=== PATIENT | male | born 1950 | race Caucasian/White ===

== ENCOUNTER → 2018-08-30 12:54 | Outpatient (CLI) | payer MEDICARE, BC, SELFPAY ==
[2018-08-17 08:56] VITALS: BMI 26.2
--- NOTE | 2018-08-30 12:57 | ECHOD_ITS ---
Reason For Study: HTN Procedure This was a 2D Doppler, Color Flow transthoracic echocardiogram. Exam performed in department. Left Ventricle Normal LV size. Left ventricular systolic function is normal. The estimated ejection fraction is 60 %. Transmitral and pulmonary venous doppler flow suggestive of impaired relaxation of left ventricle. No regional wall motion abnormalities noted. Right Ventricle Normal RV size. Normal systolic function. Atria Normal left atrium. Normal right atrium. Mitral Valve Normal mitral valve. Tricuspid Valve Normal tricuspid valve. Mild (1+) tricuspid valve insufficiency. Pulmonary artery systolic pressure is 26 mmHg. Aortic Valve Normal aortic valve. Pulmonic Valve Normal pulmonic valve. Great Vessels Normal aortic root. The pulmonary artery is normal size. Normal inferior vena cava. Pericardium/Pleural No pericardial effusion. MMode/2D Measurements & Calculations LVIDd: 5.6 cm IVSd: 1.1 cm Ao root diam: 3.0 cm LVIDs: 3.6 cm LVPWd: 0.86 cm RVDd: 3.2 cm FS: 35.6 % LAV(MOD-bp): 56.1 ml LVAd ap4: 35.4 cm2 SV(MOD-sp4): 64.3 ml LAV(MOD-bp) Indexed: 28.4 ml/m2 EDV(MOD-sp4): 115.4 ml LAV(MOD-sp2): 61.5 ml EDV(sp4-el): 115.2 ml LAV(MOD-sp4): 49.9 ml LVAs ap4: 20.5 cm2 ESV(MOD-sp4): 51.1 ml ESV(sp4-el): 49.8 ml EF(MOD-sp4): 55.7 % EF(sp4-el): 56.7 % SV(sp4-el): 65.4 ml LA A4 area: 18.2 cm2 LA dimension(2D): 4.4 cm RA A4 area: 17.2 cm2 Doppler Measurements & Calculations MV E max dwayne: 83.8 cm/sec Lat Peak E' Dwayne: 11.6 cm/sec Med Peak E' Dwayne: 7.3 cm/sec MV A max dwayne: 95.1 cm/sec E/E' lat: 7.2 E/E' med: 11.5 MV E/A: 0.88 Ao V2 max: 165.0 cm/sec LV V1 max: 109.8 cm/sec PA V2 max: 103.5 cm/sec Ao max P.9 mmHg LV V1 max P.8 mmHg Ao V2 mean: 114.5 cm/sec Ao mean P.8 mmHg Ao V2 VTI: 36.2 cm TR max dwayne: 229.6 cm/sec TR max P.1 mmHg Interpretation Summary Normal LV size. Left ventricular systolic function is normal. The estimated ejection fraction is 60 %. Transmitral and pulmonary venous doppler flow suggestive of impaired relaxation of left ventricle Mild (1+) tricuspid valve insufficiency. Pulmonary artery systolic pressure is 26 mmHg. Ordering Physician: Tomas Sanchez Referring Physician: Alfonzo Thompson Performed By: Lashawn Damico, NIKACS, RVT
== END ==
PROVIDERS: Family Provider Family Medicine; PCP Family Medicine; Referring Provider Internal Medicine Cardiovascular Disease; Visit Provider Internal Medicine Cardiovascular Disease
DX: I25.10 Atherosclerotic heart disease of native coronary artery without angina pectoris (principal)
CPT/HCPCS: 93306

== ENCOUNTER → 2020-06-06 08:35 | Outpatient (CLI) | payer MEDICARE, BC, SELFPAY ==
[2018-08-17 08:56] VITALS: BMI 26.2
[2020-06-06 09:53] LABS: AST(SGOT) 29 U/L (15-37); Alanine Aminotransfer ALT/SGPT 56 U/L (16-61); Alkaline Phosphatase 74 U/L (45-117); Bilirubin, Direct 0.17 mg/dL (0.00-0.30); Cholesterol 156 mg/dL (200); Globulin 3.7 g/dL (2.2-4.2); High Density Lipoprotein 65 mg/dL; Protein, Total 7.7 g/dL (6.4-8.2); Triglycerides 72 mg/dL; Very Low Density Lipoprotein 14 mg/dL (5-40)
== END ==
PROVIDERS: PCP Student in an Organized Health Care Education/Training Program; Referring Provider Internal Medicine Cardiovascular Disease; Visit Provider Internal Medicine Cardiovascular Disease
DX: E78.00 Pure hypercholesterolemia, unspecified (principal)
CPT/HCPCS: 36415; 80061; 80076

== ENCOUNTER 2021-05-26 16:15 | Emergency (ER) | payer MEDICARE, BC, SELFPAY ==
[2021-05-26 16:16] VITALS: BP 197/93; PULSE 67; RESP 16; TEMP 36.5; O2SAT 98; BMI 24.3
--- NOTE | 2021-05-26 16:30 | CT_ITS ---
EXAMINATION : Head CT w/out contrast HISTORY : headache, HTN COMPARISON : None. TECHNIQUE : Multiple contiguous axial images were obtained from the skull base to the vertex without intravenous contrast. A radiation dose optimization technique was used for this scan. FINDINGS : The ventricles and sulci are normal in size. There is no evidence for acute intracranial hemorrhage, mass effect, or midline shift. There is no extra-axial fluid collection. There is normal baker-white differentiation, without CT evidence of acute ischemia or infarct. The skull base and calvarium are unremarkable. The orbits are unremarkable. The paranasal sinuses are clear. The mastoid air cells are well-aerated. The soft tissues are unremarkable. CT/Brain/Head without Contrast IMPRESSION: No acute intracranial abnormality. Electronically Signed: Raphael Mitchell MD at 17:22 EDT Tel , Service support ,
--- NOTE | 2021-05-26 16:31 | EKG12_ITS ---
Test Reason : HTN/ROGERS Blood Pressure : / mmHG Vent. Rate : 066 BPM Atrial Rate : 066 BPM P-R Int : 176 ms QRS Dur : 096 ms QT Int : 408 ms P-R-T Axes : 068 028 042 degrees QTc Int : 427 ms Normal sinus rhythm Normal ECG Confirmed by KYRIE LEI, CEE ([id number]), medical editor JANET PINO ([id number]) on 05/28/2021 9:42:32 AM Referred By: JAYSHREE Confirmed By:CEE MITTAL MD
--- NOTE | 2021-05-26 16:33 | EDS_ITS ---
HPI History of Present Illness Chief Complaint: Hypertension Informant: patient and spouse/S.O. Onset/Context/Timing Onset: Today Current Severity: Mild Maximum Severity: Mild Narrative Narrative: Patient present secondary to hypertension and headache. Patient states he checks his blood pressure every day. He normally runs 120-130 systolic. Today his blood pressure at home was in the 190s systolic. He stood up multiple times throughout the day today. He does note a left frontal headache that he has had much of the day. Patient states that he is due to per [place] to spend a month in [place] in 2 days and wanted to ensure nothing was wrong before he left. He has been on the same dose of blood pressure medications for the past 2 years with no difficulty. [facility] Medical History Atherosclerotic heart disease of [place] coronary artery without angina pectoris Family history of premature coronary heart disease FH: sudden cardiac (SCD) History of prostate cancer Hyperlipidemia Right bundle branch block Syncope and collapse Home Medications aspirin 81 mg PO DAILY@0800 12/25/14 [History Last Taken 12/22/14 81 MG] lisinopril 20 mg tablet 20 mg PO DAILY #90 tab 06/08/20 [Rx Last Taken Unknown] rosuvastatin 20 mg tablet 20 mg PO DAILY #90 tab 06/08/20 [Rx Last Taken Unknown] Allergy/AdvReac Type Severity Reaction Status Date / Time No Known Allergies Allergy Verified 05/26/21 16:19 nitrogylcerin AdvReac Severe Very Uncoded 05/26/21 16:19 hypotensive Family History Father , age 78 CAD (coronary artery disease) Myocardial infarction Sudden cardiac Mother , 68 COPD (chronic obstructive pulmonary disease) Brother , age 42 CAD (coronary artery disease) Myocardial infarction Sudden cardiac Surgical History History of herniorrhaphy History of left heart catheterization (12/31/01) History of prostatectomy Social History Smoking Status: Former smoker ROS ROS ED Constitutional Constitutional ED: Denies chills or fever(s) Eyes Eyes: Denies change in vision ENT ENT ED: Denies sore throat Cardiovascular Cardiovascular: Denies chest pain Respiratory/Chest Respiratory/Chest: Denies cough or dyspnea Gastrointestinal Gastrointestinal: Denies abdominal pain, diarrhea, nausea or vomiting Genitourinary Genitourinary ED: Denies dysuria Musculoskeletal Musculoskeletal: Denies back pain Integumentary Denies rash Neurologic Neurologic: Reports headache(s); Denies weakness Allergic/Immunologic Allergic/Immunologic ED: Denies urticaria EXAM Physical Exam Const Vital Signs: 05/26/21 16:16 05/26/21 16:22 Temperature 97.7 F L Temperature Source Temporal Pulse Rate 67 Respiratory Rate 16 Respiratory Effort Normal Non-Labored Respiratory Pattern Normal Blood Pressure 197/93 H Blood Pressure Mean 127 Pulse Ox 98 Oxygen Delivery Method Room Air Positive well nourished and well developed General Appearance ED: well developed HEENT Reports normocephalic and head/scalp atraumatic Eyes PERRL and EOMs intact bilaterally Neck supple Chest Wall inspection of chest normal and palpation of chest normal Resp normal respiratory effort and clear to auscultation bilaterally Cardio regular rate and regular rhythm GI normal to inspection, nondistended, normoactive bowel sounds and non-tender Palpation: soft Extremity normal to inspection Neuro oriented x3 and no sensory deficits noted Sensorium / Orientation: alert Motor Exam: strength 5/5 throughout Psych mental status grossly normal Skin no rashes or lesions noted MDM MDM MDM Narrative Medical decision making narrative: Blood work, EKG, head CT obtained. At the time of my examination blood pressure was 161/97 so meds were held and patient was observed. Lab Data Attestation: I reviewed the patient's lab results. Labs: Laboratory Results - last 24 hr 05/26/21 05/26/21 16:39 16:39 WBC 4.9 RBC 4.84 Hgb 14.7 Hct 43.3 MCV 89.5 MCH 30.4 MCHC 33.9 RDW Std Deviation 39.5 RDW Coeff of [place] 12.3 Plt Count 212 MPV 10.0 Immature Gran % (Auto) 0.200 Neut % (Auto) 57.5 Lymph % (Auto) 27.1 [place] % (Auto) 13.4 H Eos % (Auto) 1.2 Baso % (Auto) 0.6 Absolute Neuts (auto) 2.8 Absolute Lymphs (auto) 1.33 Nucleated RBC % 0 Sodium 141 Potassium 3.8 Chloride 107 Carbon Dioxide 29.0 Anion Gap 5 BUN 11 Creatinine 0.87 Estim Creat Clear Calc 81.58 Est GFR (MDRD) Af Amer 112 Est GFR (MDRD) Non-Af 92 BUN/Creatinine Ratio 12.7 Glucose 109 H Calcium 9.3 Radiography Diagnostic Testing: Clinical Impression(s) from Imaging Studies Brain CT 05/26/21 16:30 IMPRESSION: No acute intracranial abnormality. Electronically Signed: Raphael Mitchell MD at 17:22 EDT Tel , Service support , EKG Initial EKG: Attestation: I personally reviewed and interpreted this EKG as follows: Interpretation: Sinus Rhythm (Sinus at 66 with no acute ischemia.) Treatment and Re-Evaluation Comments:: Repeat evaluation patient resting comfortably. He states his headache is improved but still mild and present. He will be given a dose of Tylenol. Blood pressure at this time is 140/82 without any intervention. Test results discussed with patient and at bedside. I advised him to take his blood pressure medication in the morning as planned and then recheck his blood pressure couple hours later like he normally would. If it is elevated again he can call Dr. Sanchez for further instructions. I advised him if he is not having significant symptoms not to worry about checking it too often. Discharge Plan Triage Chief Complaint: Hypertension ED Provider: Tarah Anaya Dx/Rx/DC Orders Clinical Impression: Hypertension Instructions: ED High Blood Pressure Hypertension Prescriptions: No Action rosuvastatin 20 mg tablet 20 mg PO DAILY Qty: 90 RF: 3 lisinopril 20 mg tablet 20 mg PO DAILY Qty: 90 RF: 3 aspirin 81 MG tablet,chewable 81 mg PO DAILY@0800 RF: 0 Primary Care Provider: Javon Mckeon Referrals: Tomas Sanchez MD [STAFF PHYSICIAN] - As Needed Javon Mckeon DO [Primary Care Provider] - Disposition Disposition: Home, Self Care
--- NOTE | 2021-05-26 16:41 | NURSING ---
NO OLD EKGS
[2021-05-26 16:55] LABS: Absolute Lymphocyte Count 1.33 X10^3/uL (0.83-4.51); Absolute Neutrophil Count 2.8 X10^3/uL (2.0-7.7); Basophil# 0.03 X10^3/uL; Basophil% 0.6 % (0-1); Eosinophil# 0.06 X10^3/uL; Eosinophils% 1.2 % (0-5); Hematocrit 43.3 % (40-54); Hemoglobin 14.7 g/dL (13.0-16.5); Lymphocyte # 1.33 X10^3/ul (0.83-4.51); Lymphocyte % 27.1 % (19-41); Mean Corp Hgb Conc 33.9 g/dL (32-36); Mean Corpuscular Hgb 30.4 pg (27.0-32.0); Mean Corpuscular Volume 89.5 fL (80-94); Monocyte# 0.66 X10^3/uL; Monocyte% 13.4 % (0-10); NRBC Flagged by Analyzer 0 % (0-5); Neutrophil # 2.82 X10^3/uL (2.7-7.7); Neutrophil % 57.5 % (47-70); Platelet Count 212 K/mm3 (150-450); RBC Distribution Width CV 12.3 % (11.6-14.6); RBC Distribution Width SD 39.5 fl (35.1-43.9); Red Blood Count 4.84 M/mm3 (4.6-6.2); White Blood Count 4.9 K/mm3 (4.4-11.0)
[2021-05-26 17:06] LABS: Anion Gap 5 (5-15); BUN 11 mg/dL (7-18); BUN/Creat Ratio 12.7 RATIO (10-20); Calcium,Total 9.3 mg/dL (8.5-10.1); Chloride 107 mmol/L (98-107); Creatinine, Serum 0.87 mg/dL (0.70-1.30); EST Glomerular Filtration Rate 92 mL/min (>60); Est Glom Filt Rate - Afr Amer 112 mL/min (>60); Estimated Creatinine Clearance 81.58 ml/min; Glucose 109 mg/dL (74-106); Potassium 3.8 mmol/L (3.5-5.1); Sodium Level 141 mmol/L (136-145)
[2021-05-26 17:23] VITALS: BP 140/82; PULSE 76; RESP 18; O2SAT 97
[2021-05-26] MEDS: Acetaminophen 500 MG Tablet 1000 MG PO (17:30)
[2021-05-26 17:32] VITALS: RESP 16
== END 2021-05-26 17:34 | disposition home or self-care (01) ==
PROVIDERS: Emergency Provider Emergency Medicine; PCP Student in an Organized Health Care Education/Training Program
DX: I10 Essential (primary) hypertension (principal); I25.10 Atherosclerotic heart disease of native coronary artery without angina pectoris; Z79.82 Long term (current) use of aspirin; Z79.899 Other long term (current) drug therapy; Z87.891 Personal history of nicotine dependence; Z82.49 Family history of ischemic heart disease and other diseases of the circulatory system
CPT/HCPCS: 70450; 80048; 85025; 93005; 99285; A4216

== ENCOUNTER → 2021-07-01 06:31 | Outpatient (CLI) | payer MEDICARE, BC, SELFPAY ==
[2021-07-01 08:02] LABS: AST(SGOT) 30 U/L (15-37); Alanine Aminotransfer ALT/SGPT 70 U/L (16-61); Albumin, Serum 4.3 g/dL (3.2-5.0); Alkaline Phosphatase 72 U/L (45-117); Bilirubin, Direct 0.22 mg/dL (0.00-0.30); Cholesterol 162 mg/dL (200); Globulin 3.8 g/dL (2.2-4.2); High Density Lipoprotein 61 mg/dL; Protein, Total 8.1 g/dL (6.4-8.2); Triglycerides 74 mg/dL; Very Low Density Lipoprotein 15 mg/dL (5-40)
== END ==
PROVIDERS: PCP Student in an Organized Health Care Education/Training Program; Referring Provider Internal Medicine Cardiovascular Disease; Visit Provider Internal Medicine Cardiovascular Disease
DX: E78.00 Pure hypercholesterolemia, unspecified (principal); I25.10 Atherosclerotic heart disease of native coronary artery without angina pectoris
CPT/HCPCS: 36415; 80061; 80076

== ENCOUNTER → 2021-07-10 05:58 | Outpatient (CLI) | payer MEDICARE, BC, SELFPAY ==
--- NOTE | 2021-07-10 12:49 | STRESSREP ---
Stress Test Report Exercise myocardial perfusion stress test. 71-year-old man with a history of dyspnea and fatigue. Stress protocol: Resting EKG demonstrates normal sinus rhythm with a rate of 55 bpm normal intervals are noted resting blood pressure is 130/78 mmHg. The patient exercised according to regular [place] protocol for total duration of 8 minutes. Patient completed stage III of the [place] protocol in with 2 minutes. The maximum heart rate attained was 127 bpm which was 87% of max impact at heart rate. The maximum workload was 10.1 metabolic equivalents. The patient maintained sinus rhythm throughout the recording. At rest no ST changes were noted to suggest ischemia and at peak exercise upsloping ST changes were noted with did not meet the criteria for ischemia. No clinical angina was noted the peak blood pressure was 170/64 mmHg with a rate-pressure product 20,160. No clinical angina was noted. Myocardial perfusion protocol. 11.8 mCi of technetium 99m sestamibi was injected at rest. The patient exercised according to regular [place] protocol for total duration of 8 minutes. At peak exercise 33.4 mCi of technetium 99m sestamibi was injected stress images were obtained stress and rest images were reconstructed and compared in the short axis vertical long and horizontal long axis. Gated images were also obtained. Perfusion SPECT analysis: Review of the stress images demonstrate normal uptake of tracer noted in all areas of the myocardium. The resting images similarly demonstrate normal uptake of tracer noted in all areas of the myocardium. No areas of reversibility are noted to suggest ischemia and no previous infarct is noted. Gated SPECT analysis: The gated ejection fraction is noted to be 57%. Conclusion: Normal exercise myocardial perfusion stress test at a high workload. Preserved ejection fraction.
== END ==
PROVIDERS: PCP Student in an Organized Health Care Education/Training Program; Referring Provider Nurse Practitioner Gerontology; Visit Provider Nurse Practitioner Gerontology
DX: I25.10 Atherosclerotic heart disease of native coronary artery without angina pectoris (principal); R94.39 Abnormal result of other cardiovascular function study
CPT/HCPCS: 78452; 93017; A9500; A4216

== ENCOUNTER → 2022-01-22 | Outpatient (CLI) | payer MEDICARE, BC, SELFPAY ==
[2022-01-22 07:46] LABS: AST(SGOT) 26 U/L (15-37); Alanine Aminotransfer ALT/SGPT 47 U/L (16-61); Albumin, Serum 3.8 g/dL (3.2-5.0); Alkaline Phosphatase 63 U/L (45-117); Bilirubin, Direct 0.15 mg/dL (0.00-0.30); Cholesterol 152 mg/dL (200); Globulin 3.5 g/dL (2.2-4.2); High Density Lipoprotein 63 mg/dL; Protein, Total 7.3 g/dL (6.4-8.2); Triglycerides 66 mg/dL; Very Low Density Lipoprotein 13 mg/dL (5-40)
== END | disposition home or self-care (01) ==
LOC: LAB 06:34
PROVIDERS: PCP Student in an Organized Health Care Education/Training Program; Referring Provider Internal Medicine Cardiovascular Disease; Visit Provider Internal Medicine Cardiovascular Disease
DX: E78.00 Pure hypercholesterolemia, unspecified (principal)
CPT/HCPCS: 36415; 80061; 80076

== ENCOUNTER → 2022-07-04 | Outpatient (CLI) | payer MEDICARE, BC, SELFPAY ==
[2022-07-04 08:52] LABS: AST(SGOT) 17 U/L (15-37); Alanine Aminotransfer ALT/SGPT 49 U/L (16-61); Albumin, Serum 3.6 g/dL (3.2-5.0); Alkaline Phosphatase 68 U/L (45-117); Bilirubin, Direct 0.16 mg/dL (0.00-0.30); Cholesterol 151 mg/dL (200); Globulin 3.2 g/dL (2.2-4.2); High Density Lipoprotein 56 mg/dL; Protein, Total 6.8 g/dL (6.4-8.2); Triglycerides 88 mg/dL; Very Low Density Lipoprotein 18 mg/dL (5-40)
== END | disposition home or self-care (01) ==
LOC: LAB 06:49
PROVIDERS: PCP Student in an Organized Health Care Education/Training Program; Visit Provider Internal Medicine Cardiovascular Disease
DX: E78.5 Hyperlipidemia, unspecified (principal)
CPT/HCPCS: 36415; 80061; 80076

== ENCOUNTER 2023-02-02 05:09 | Emergency (ER) | payer MEDICARE, BC, SELFPAY ==
[2023-02-02 05:10] VITALS: BP 162/84; PULSE 63; RESP 15; TEMP 36.5; O2SAT 100; BMI 24.7
--- NOTE | 2023-02-02 05:41 | EX.ED.DYSGE1 ---
HPI History of Present Illness Chief Complaint: Back Informant: patient and spouse/S.O. Narrative Narrative: Patient is a 73-year-old male with past medical history of hyperlipidemia and coronary artery disease as well as previous degenerative disc disease of the lumbar spine requiring laminectomy. He states that surgery was roughly 20 years ago and over the past few weeks to months he has been having increasing low back pain which radiates down his right leg. He states he had an MRI roughly 2 weeks ago that showed nerve impingement. He states he has been no repeat trauma or excessive activity but he has noted increasing pain that is not responding to [id number] medications. He states there is been no loss of bowel or bladder control and he denies any IV drug use. However because of the persistent symptoms he presents for evaluation [facility] Medical History Atherosclerotic heart disease of [place] coronary artery without angina pectoris COVID-19 (~04/2021) Family history of premature coronary heart disease FH: sudden cardiac (SCD) History of prostate cancer Hyperlipidemia Right bundle branch block Syncope and collapse Home Medications aspirin 81 mg chewable tablet 81 mg PO DAILY@0800 12/25/14 [History Last Taken 12/22/14 81 MG] cholecalciferol (vitamin D3) 25 mcg (1,000 unit) chewable tablet 50 mcg PO DAILY 07/03/21 [History Last Taken Unknown] rosuvastatin 20 mg tablet 20 mg PO DAILY #90 tabs 07/08/22 [Rx Last Taken Unknown] lisinopril 20 mg tablet 20 mg PO BID This is a dose increase (pt got 90 pills last time #180 tabs 07/17/22 [Rx Last Taken Unknown] methocarbamol 750 mg tablet 750 mg PO TID PRN Muscle pain/spasm 10 days #30 tabs 02/02/23 [Rx Last Taken Unknown] oxycodone-acetaminophen 5 mg-325 mg tablet (Percocet) 1 tab PO Q6H PRN pain 3 days #12 tabs 02/02/23 [Rx Last Taken Unknown] prednisone 20 mg tablet 40 mg (2 x 20 mg) PO DAILY 5 days #10 tabs 02/02/23 [Rx Last Taken Unknown] Allergy/AdvReac Type Severity Reaction Status Date / Time nitroglycerin AdvReac Severe Other Verified 02/02/23 05:16 Family History Father , age 78 CAD (coronary artery disease) Myocardial infarction Sudden cardiac Mother , 68 COPD (chronic obstructive pulmonary disease) Brother , age 42 CAD (coronary artery disease) Myocardial infarction Sudden cardiac Surgical History History of herniorrhaphy History of left heart catheterization (12/31/01) History of prostatectomy Social History Smoking Status: Former smoker how long ago did patient quit smokin alcohol intake: current alcohol intake frequency: 0-2 drinks per day Alcohol type: beer, wine and hard liquor substance use type: does not use caffeine: Yes Type: coffee Number of servings: 4 ROS ROS ED Constitutional Constitutional ED: Denies chills or fever(s) ENT ENT ED: Denies sore throat Cardiovascular Cardiovascular: Denies chest pain Respiratory/Chest Respiratory/Chest: Denies cough or dyspnea Gastrointestinal Gastrointestinal: Denies abdominal pain, diarrhea, nausea or vomiting Genitourinary Genitourinary ED: Denies dysuria or hematuria Musculoskeletal Musculoskeletal: Reports back pain and other Details: Positive right leg pain Integumentary Denies rash Neurologic Neurologic: Reports paresthesias; Denies headache(s) Hematologic/Lymphatic Hematologic/Lymphatic: Denies easy bleeding or easy bruising EXAM Physical Exam Const Vital Signs: 02/02/23 05:10 02/02/23 06:08 Temperature 97.7 F L Temperature Source Temporal Pulse Rate 63 73 Respiratory Rate 15 15 Blood Pressure 162/84 H 152/87 H Blood Pressure Mean 110 Pulse Ox 100 98 Oxygen Delivery Method Room Air Positive well nourished and well developed General Appearance ED: well developed; Negative for pallor HEENT HEENT Narrative: Normocephalic atraumatic Eyes PERRL and EOMs intact bilaterally Neck supple Resp normal respiratory effort and clear to auscultation bilaterally Cardio regular rate and regular rhythm Rate: other Other Details: Radial pulses are plus 2 out of 4 bilaterally are equal and symmetric Back/Spine Back/Spine Narrative: No saddle anesthesia. No clonus or Babinski. Patellar reflexes are plus 2 out of 4 bilaterally. Positive straight leg raise on right at approximately 40 degrees. Extremity normal to inspection Neuro oriented x3 and CN's II-XII intact bilaterally Sensorium / Orientation: alert Psych mental status grossly normal Skin no rashes or lesions noted General Skin Exam: Negative for jaundice or pallor MDM MDM MDM Narrative Medical decision making narrative: Patient presented to the ER hypertensive otherwise with stable vitals. He has known degenerative disc disease of his low back. There is been no recent trauma and he denies any recent surgery or history of IV drug use to suggest discitis or epidural abscess. He also states he has had no issues with loss of bowel or bladder control going against cauda equina syndrome. He reported he had an MRI just 2 weeks ago which showed nerve impingement and based on his physical exam and radiation of the pain down the posterior medial aspect of the leg towards the great toe this does correlate with an L5-S1 dermatome. Therefore I feel no reason to repeat imaging study. Patient states he is mainly here for pain control and therefore he will be given IM morphine IM and Decadron and placed on further steroids and pain medication for home. However as he has had recent MRI I do not feel need for repeat imaging and as history and exam indicate potential risk factors for infectious process or cauda equina is low he can be safely discharged home History & Record Review Discussion w/independent historian: Patient and Significant other Discharge Plan Triage Chief Complaint: Back ED Provider: Cayden Jaquez Dx/Rx/DC Orders Clinical Impression: Lumbar disc disease with radiculopathy, Hyperlipidemia Instructions: Understanding Lumbar Radiculopathy, ED Degenerative Disk Disease Prescriptions: New oxycodone-acetaminophen [Percocet] 5-325 mg tablet 1 tab PO Q6H PRN (Reason: pain) 3 Days Qty: 12 0RF prednisone 20 mg tablet 40 mg PO DAILY 5 Days Qty: 10 0RF methocarbamol 750 mg tablet 750 mg PO TID PRN (Reason: Muscle pain/spasm) 10 Days Qty: 30 0RF No Action cholecalciferol (vitamin D3) 25 mcg (1,000 unit) tablet,chewable 50 mcg PO DAILY rosuvastatin 20 mg tablet 20 mg PO DAILY Qty: 90 3RF aspirin 81 MG tablet,chewable 81 mg PO DAILY@0800 lisinopril 20 mg tablet 20 mg PO BID Qty: 180 4RF Primary Care Provider: Javon Mckeon Referrals: Javon Mckeon, [Primary Care Provider] - Activity Restrictions/Additional Instructions: Please discuss referral to a spine surgeon with your family doctor. Your history and exam indicate that you have nerve impingement at your L5-S1 nerve root causing your leg pain. If you elect not to undergo your back injection scheduled for Thursday then please take the prescribed Percocet/oxycodone and you can add the prescription grade ibuprofen you already have at home with this as they work synergistically to help reduce pain. Take the prednisone once a day as directed as well for the next 5 days to reduce your inflammatory response. If you do decide to undergo your back injections please refrain from taking the ibuprofen and prednisone. If you have any further concerns or worsening of symptoms please return to the hospital for repeat evaluation Disposition Disposition: Home, Self Care Discharge Date/Time: 02/02/23 06:08
[2023-02-02] MEDS: Ondansetron ODT 4 MG Tablet PO (05:51)
[2023-02-02] MEDS: dexAMETHasone 10 MG/ML Vial IM (05:51)
[2023-02-02] MEDS: Morphine 4 MG/ML Syringe 6 MG IM (05:52)
[2023-02-02 06:08] VITALS: BP 152/87; PULSE 73; RESP 15; O2SAT 98
== END 2023-02-02 06:08 | disposition home or self-care (01) ==
LOC: ED 05:54
PROVIDERS: Emergency Provider Emergency Medicine; PCP Student in an Organized Health Care Education/Training Program; Visit Provider Emergency Medicine
DX: M51.16 Intervertebral disc disorders with radiculopathy, lumbar region (principal); E78.5 Hyperlipidemia, unspecified; I25.10 Atherosclerotic heart disease of native coronary artery without angina pectoris; Z87.891 Personal history of nicotine dependence; Z86.16 Personal history of COVID-19
CPT/HCPCS: 96372; 99283

== ENCOUNTER 2023-07-03 19:45 | Emergency (ER) | payer MEDICARE, BC, SELFPAY ==
[2023-07-03 19:46] VITALS: BP 133/66; PULSE 80; RESP 18; TEMP 36.4; O2SAT 96
--- NOTE | 2023-07-03 20:39 | ED.RN ---
patient experienced a syncopal episode. patient was sitting down, slumped forward when passing out but denies hitting head or loc. patient states I remember feeling warm and my eyes got really blurry, next thing I remember was waking up surrounded by a bunch of people. had a similar dizzy episode last week when he brought his to the ER. denies symptoms currently. denies injury.
[2023-07-03 20:46] VITALS: BP 122/62
[2023-07-03 21:46] VITALS: BP 124/74
--- NOTE | 2023-07-03 22:23 | EX.ED.DYSGE1 ---
HPI History of Present Illness Chief Complaint: Syncope Informant: patient Narrative Narrative: Patient is a 73 year old male with right bundle branch block, coronary artery disease and hyperlipidemia presenting after syncopal episode. Patient states he was at a baseball game sitting up in the stands. He started to feel hot. He notes he is having hard time focusing and all the sudden he passed out. Son at the bedside who states that he passed out 2 times in quick succession. Notes he was really pale. He does not fall or hit his head. Once they got him out of the stadium cooled off he states he is feeling better. Currently denies any complaints. Reports an episode of near syncope about a week ago when his was getting sutures but he did not pass out at this time. Otherwise had episode of syncope years ago while at a casino. Denies any palpitations, chest discomfort or shortness of breath. Denies any swelling of his legs. Notes that he is dealing with some increased sciatica pain that started today. Notes of this past year he has had issues with sciatica and has been pretty well-controlled with injections however he went walking at the local [place] and his pain flared up today. He did take a Percocet at 4 PM. Notes his pain is doing better right now. Did have an episode of urinary incontinence during this episode today. No other complaints or concerns at this time. [facility] History Atherosclerotic heart disease of [place] coronary artery without angina pectoris COVID-19 (~04/2021) Family history of premature coronary heart disease FH: sudden cardiac (SCD) History of prostate cancer Hyperlipidemia Right bundle branch block Syncope and collapse Home Medications aspirin 81 mg chewable tablet 81 mg PO DAILY@0800 12/25/14 [History Last Taken 12/22/14 81 MG] cholecalciferol (vitamin D3) 25 mcg (1,000 unit) chewable tablet 50 mcg PO DAILY 07/03/21 [History Last Taken Unknown] methocarbamol 750 mg tablet 750 mg PO TID PRN Muscle pain/spasm 10 days #30 tabs 02/02/23 [Rx Last Taken Unknown] oxycodone-acetaminophen 5 mg-325 mg tablet (Percocet) 1 tab PO Q6H PRN pain 3 days #12 tabs 02/02/23 [Rx Last Taken Unknown] lisinopril 20 mg tablet 20 mg PO BID #180 tabs 06/12/23 [Rx Last Taken Unknown] rosuvastatin 20 mg tablet 20 mg PO DAILY #90 tabs 06/12/23 [Rx Last Taken Unknown] prednisone 20 mg tablet 40 mg (2 x 20 mg) PO DAILY 5 days #10 tabs 07/04/23 [Rx Last Taken Unknown] Allergy/AdvReac Type Severity Reaction Status Date / Time nitroglycerin AdvReac Severe Other Verified 07/03/23 19:50 Family History Father , age 78 CAD (coronary artery disease) Myocardial infarction Sudden cardiac Mother , 68 COPD (chronic obstructive pulmonary disease) Brother , age 42 CAD (coronary artery disease) Myocardial infarction Sudden cardiac Surgical History History of herniorrhaphy History of left heart catheterization (12/31/01) History of prostatectomy Social History Smoking Status: Former smoker how long ago did patient quit smokin alcohol intake: current alcohol intake frequency: 0-2 drinks per day Alcohol type: beer, wine and hard liquor substance use type: does not use caffeine: Yes Type: coffee Number of servings: 4 ROS ROS ED Constitutional Constitutional ED: Reports sweats and other Details: syncope ; Denies chills or fever(s) Eyes Eyes: Reports blurry vision; Denies change in vision ENT ENT ED: Denies rhinorrhea Cardiovascular Cardiovascular: Denies chest pain or palpitations Respiratory/Chest Respiratory/Chest: Denies cough Gastrointestinal Gastrointestinal: Denies abdominal pain, nausea or vomiting Genitourinary Genitourinary ED: Denies dysuria Musculoskeletal Musculoskeletal: Reports back pain; Denies arthralgias Integumentary Denies rash Neurologic Neurologic: Denies headache(s), paresthesias or weakness Psychiatric Psychiatric: Denies anxiety Hematologic/Lymphatic Hematologic/Lymphatic: Denies easy bleeding or easy bruising EXAM Physical Exam Const Vital Signs: 07/03/23 19:46 07/03/23 20:36 07/03/23 20:46 Temperature 97.6 F L Temperature Source Temporal Pulse Rate 80 Pulse Rate [Lying] Pulse Rate [Sitting (for 1 minute prior to obtaining)] Pulse Rate [Standing (for 1 minute prior to obtaining)] Respiratory Rate 18 Respiratory Effort Normal Respiratory Pattern Normal Blood Pressure 133/66 H 122/62 H Blood Pressure [Lying] Blood Pressure [Sitting (for 1 minute prior to obtaining)] Blood Pressure [Standing (for 1 minute prior to obtaining)] Blood Pressure Mean 88 82 Blood Pressure Mean [Lying] Blood Pressure Mean [Sitting (for 1 minute prior to obtaining)] Blood Pressure Mean [Standing (for 1 minute prior to obtaining)] Pulse Ox 96 Oxygen Delivery Method Room Air 07/03/23 21:46 07/03/23 22:46 07/03/23 23:00 Temperature Temperature Source Pulse Rate 60 Pulse Rate [Lying] Pulse Rate [Sitting (for 1 minute prior to obtaining)] Pulse Rate [Standing (for 1 minute prior to obtaining)] Respiratory Rate 16 Respiratory Effort Respiratory Pattern Blood Pressure 124/74 H 135/85 H 128/104 H Blood Pressure [Lying] Blood Pressure [Sitting (for 1 minute prior to obtaining)] Blood Pressure [Standing (for 1 minute prior to obtaining)] Blood Pressure Mean 90 101 112 Blood Pressure Mean [Lying] Blood Pressure Mean [Sitting (for 1 minute prior to obtaining)] Blood Pressure Mean [Standing (for 1 minute prior to obtaining)] Pulse Ox 100 Oxygen Delivery Method Room Air 07/03/23 23:38 Temperature Temperature Source Pulse Rate Pulse Rate [Lying] 62 Pulse Rate [Sitting (for 1 minute prior to obtaining)] 65 Pulse Rate [Standing (for 1 minute prior to obtaining)] 67 Respiratory Rate Respiratory Effort Respiratory Pattern Blood Pressure Blood Pressure [Lying] 121/71 H Blood Pressure [Sitting (for 1 minute prior to obtaining)] 113/75 Blood Pressure [Standing (for 1 minute prior to obtaining)] 113/75 Blood Pressure Mean Blood Pressure Mean [Lying] 87 Blood Pressure Mean [Sitting (for 1 minute prior to obtaining)] 87 Blood Pressure Mean [Standing (for 1 minute prior to obtaining)] 87 Pulse Ox Oxygen Delivery Method Positive well nourished and well developed General Appearance ED: well developed and NAD HEENT Reports moist mucous membranes Eyes PERRL and EOMs intact bilaterally Neck supple and no JVD Chest Wall inspection of chest normal and palpation of chest normal Resp normal respiratory effort and clear to auscultation bilaterally Cardio regular rate, regular rhythm and no murmurs GI normal to inspection, nondistended, normoactive bowel sounds and non-tender GI Narrative: No pulsatile mass Auscultation: normoactive bowel sounds Extremity normal to inspection Extremity Narrative: Sciatica-like pain of the right lower extremity General Extremety ED: Negative for edema or tenderness General Extremity: Negative for edema Neuro oriented x3 Sensorium / Orientation: alert Motor Exam: Negative for general weakness Psych mental status grossly normal Skin no rashes or lesions noted and no wounds MDM MDM MDM Narrative Medical decision making narrative: Valuated for a syncopal episode that occurred tonight. There is a prodrome of feeling hot, sweaty and then trouble focusing. He did have associated urinary incontinence but no reported seizure-like activity. Does not have any tongue laceration. EKG shows sinus bradycardia with no acute ischemic changes. No arrhythmia or block is appreciated. Patient has a normal cardiac workup including normal high-sensitivity troponin x 2. He does not have any significant [place] abnormalities. He does have a mild elevation of his potassium of 5.7 but this is hemolyzed I suspect falsely elevated. His kidney function is normal and I do not suspect acute renal failure or other causes of hyperkalemia. Orthostatics are normal. I do not think he requires IV fluids at this time. He is not having any chest pain. Not complain of any respiratory symptoms is not tachycardic or hypoxic so I have a low suspicion for pulmonary emboli. No clinical signs or symptoms of DVT. He has good distal pulses. I do not think the back pain and sciatica is an aortic pathology based on his history. His blood pressure is normal in the ER and he is not hypertensive. Will be prescribed a short course of prednisone to help with his sciatica. Patient does not have any cardiac arrhythmia on telemetry. I will be discharged home to follow-up outpatient with cardiology. Return precautions to the ER. He verbalizes agreement and understanding with this plan. Lab Data Attestation: I reviewed the patient's lab results. Labs: Laboratory Results - last 24 hr 07/03/23 07/04/23 22:42 00:50 WBC 9.5 RBC 4.04 L Hgb 12.7 L Hct 37.6 L MCV 93.1 MCH 31.4 MCHC 33.8 RDW Std Deviation 40.9 RDW Coeff of [place] 11.9 Plt Count 180 MPV 9.9 Immature Gran % (Auto) 0.300 Neut % (Auto) 81.2 H Lymph % (Auto) 11.7 L [place] % (Auto) 6.4 Eos % (Auto) 0.1 Baso % (Auto) 0.3 Absolute Neuts (auto) 7.7 Absolute Lymphs (auto) 1.12 Nucleated RBC % 0 Sodium 138 Potassium 5.7 H Chloride 109 H Carbon Dioxide 28.0 Anion Gap 1 L BUN 22 H Creatinine 0.96 Est GFR (MDRD) Af Amer 99 Est GFR (MDRD) Non-Af 81 BUN/Creatinine Ratio 22.8 H Glucose 100 Calcium 9.1 Troponin I High Sens 8 9 Radiography Chest X-Ray - ED: 2 View, Read by ED Physician, Read by Radiologist and No Acute Disease Diagnostic Testing: Clinical Impression(s) from Imaging Studies Chest X-Ray 07/03/23 22:44 IMPRESSION: No acute findings in the chest. Electronically Signed: Issa Haley DO at 23:01 EST , Rhythm Strip Rhythm Strip: Sinus Rhythm Rate: 51 Ectopy: None EKG Initial EKG: Attestation: I personally reviewed and interpreted this EKG as follows: Interpretation: Sinus Bradycardia Comments: Sinus bradycardia rate of 51 bpm Normal axis Normal intervals Normal ST segments Compared to prior EKG on 05/26/2021, rate decreased from 66 bpm to 51 bpm with no other acute changes Discharge Plan Triage Chief Complaint: Syncope ED Provider: Jo Joseph Dx/Rx/DC Orders Clinical Impression: Syncope and collapse, Sciatica Instructions: ED Near-Fainting, Uncertain Cause Prescriptions: Continued prednisone 20 mg tablet 40 mg PO DAILY 5 Days Qty: 10 0RF No Action cholecalciferol (vitamin D3) 25 mcg (1,000 unit) tablet,chewable 50 mcg PO DAILY aspirin 81 MG tablet,chewable 81 mg PO DAILY@0800 oxycodone-acetaminophen [Percocet] 5-325 mg tablet 1 tab PO Q6H PRN (Reason: pain) 3 Days Qty: 12 0RF methocarbamol 750 mg tablet 750 mg PO TID PRN (Reason: Muscle pain/spasm) 10 Days Qty: 30 0RF rosuvastatin 20 mg tablet 20 mg PO DAILY Qty: 90 3RF lisinopril 20 mg tablet 20 mg PO BID Qty: 180 3RF Primary Care Provider: Javon Mckeon Referrals: Javon Mckeon DO [Primary Care Provider] - Activity Restrictions/Additional Instructions: The exact cause of your syncopal episodes. Throat clear. 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 If you have another episode of syncope or worsening symptoms please return immediately to the emergency room. Disposition Disposition: Home, Self Care Discharge Date/Time: 07/04/23 01:34
--- NOTE | 2023-07-03 22:44 | RAD_ITS ---
EXAM: XR CHEST, 2 VIEWS CLINICAL INDICATION: syncope TECHNIQUE: Frontal and lateral views of the chest. COMPARISON: No relevant prior studies available. FINDINGS: LUNGS AND PLEURAL SPACES: No significant abnormality. No consolidation or edema. No pneumothorax. No effusion. HEART: No significant abnormality. Cardiac silhouette not enlarged. MEDIASTINUM: Central airways and mediastinal contour are unremarkable. BONES/JOINTS: Degenerative changes in the spine. No acute fracture. SOFT TISSUES: No significant abnormality. VASCULATURE: Atherosclerosis. RAD/Chest PA and Lateral IMPRESSION: No acute findings in the chest. Electronically Signed: Issa Haley DO at 23:01 EST ,
[2023-07-03 22:46] VITALS: BP 135/85
[2023-07-03 22:51] LABS: Absolute Lymphocyte Count 1.12 X10^3/uL (0.83-4.51); Absolute Neutrophil Count 7.7 X10^3/uL (2.0-7.7); Basophil# 0.03 X10^3/uL; Basophil% 0.3 % (0-1); Eosinophil# 0.01 X10^3/uL; Eosinophils% 0.1 % (0-5); Hematocrit 37.6 % (40-54); Hemoglobin 12.7 g/dL (13.0-16.5); Lymphocyte # 1.12 X10^3/ul (0.83-4.51); Lymphocyte % 11.7 % (19-41); Mean Corp Hgb Conc 33.8 g/dL (32-36); Mean Corpuscular Hgb 31.4 pg (27.0-32.0); Mean Corpuscular Volume 93.1 fL (80-94); Mean Platelet Vol. 9.9 fl (6.2-12.0); Monocyte# 0.61 X10^3/uL; Monocyte% 6.4 % (0-10); NRBC Flagged by Analyzer 0 % (0-5); Neutrophil # 7.74 X10^3/uL (2.7-7.7); Neutrophil % 81.2 % (47-70); Platelet Count 180 K/mm3 (150-450); RBC Distribution Width CV 11.9 % (11.6-14.6); RBC Distribution Width SD 40.9 fl (35.1-43.9); Red Blood Count 4.04 M/mm3 (4.6-6.2); White Blood Count 9.5 K/mm3 (4.4-11.0)
[2023-07-03 23:00] VITALS: BP 128/104; PULSE 60; RESP 16; O2SAT 100
[2023-07-03 23:18] LABS: Anion Gap 1 (5-15); BUN 22 mg/dL (7-18); BUN/Creat Ratio 22.8 RATIO (10-20); Calcium,Total 9.1 mg/dL (8.5-10.1); Chloride 109 mmol/L (98-107); Creatinine, Serum 0.96 mg/dL (0.70-1.30); EST Glomerular Filtration Rate 81 mL/min (>60); Est Glom Filt Rate - Afr Amer 99 mL/min (>60); Glucose 100 mg/dL (74-106); Potassium 5.7 mmol/L (3.5-5.1); Sodium Level 138 mmol/L (136-145); Troponin-I HS (w/2H Reflex) 8 pg/mL (3.0-78.0)
[2023-07-03 23:38] VITALS: BP 113/75; BP 121/71; PULSE 62; PULSE 65; PULSE 67
[2023-07-04 00:47] LABS: Reflex Troponin-HS? (from REC) Y
[2023-07-04 01:17] LABS: Troponin-I HS 9 pg/mL (3.0-78.0)
[2023-07-04 01:33] VITALS: BP 145/71; PULSE 57; RESP 16; O2SAT 97
== END 2023-07-04 01:34 | disposition home or self-care (01) ==
PROVIDERS: Emergency Provider Emergency Medicine; PCP Student in an Organized Health Care Education/Training Program; Visit Provider Emergency Medicine
DX: R55 Syncope and collapse (principal); M54.30 Sciatica, unspecified side; I25.10 Atherosclerotic heart disease of native coronary artery without angina pectoris; Z86.16 Personal history of COVID-19; Z87.891 Personal history of nicotine dependence
CPT/HCPCS: 71046; 80048; 84484; 85025; 93005; 99285; A4216

== ENCOUNTER → 2023-07-07 | Outpatient (CLI) | payer MEDICARE, BC, SELFPAY ==
[2023-07-07 10:18] LABS: AST(SGOT) 22 U/L (15-37); Alanine Aminotransfer ALT/SGPT 64 U/L (16-61); Albumin, Serum 3.7 g/dL (3.2-5.0); Alkaline Phosphatase 66 U/L (45-117); Bilirubin, Direct 0.09 mg/dL (0.00-0.30); Cholesterol 155 mg/dL (200); Globulin 3.7 g/dL (2.2-4.2); High Density Lipoprotein 71 mg/dL; Protein, Total 7.4 g/dL (6.4-8.2); Triglycerides 102 mg/dL; Very Low Density Lipoprotein 20 mg/dL (5-40)
== END | disposition home or self-care (01) ==
LOC: LAB 08:42
PROVIDERS: PCP Student in an Organized Health Care Education/Training Program; Referring Provider Internal Medicine Cardiovascular Disease; Visit Provider Internal Medicine Cardiovascular Disease
DX: I25.10 Atherosclerotic heart disease of native coronary artery without angina pectoris (principal); E78.00 Pure hypercholesterolemia, unspecified
CPT/HCPCS: 36415; 80061; 80076

== ENCOUNTER → 2023-07-09 | Outpatient (CLI) | payer MEDICARE, BC, SELFPAY ==
[2023-07-09 10:52] LABS: Anion Gap 2 (5-15); BUN 17 mg/dL (7-18); BUN/Creat Ratio 17.9 RATIO (10-20); Calcium,Total 9.8 mg/dL (8.5-10.1); Chloride 107 mmol/L (98-107); Creatinine, Serum 0.95 mg/dL (0.70-1.30); EST Glomerular Filtration Rate 83 mL/min (>60); Est Glom Filt Rate - Afr Amer 100 mL/min (>60); Glucose 83 mg/dL (74-106); Potassium 3.5 mmol/L (3.5-5.1); Sodium Level 140 mmol/L (136-145)
[2023-07-09 11:03] LABS: BNP,B-Type NATRIURETIC PEPTIDE 18.8 pg/mL (0-100)
== END | disposition home or self-care (01) ==
LOC: LAB 09:08
PROVIDERS: PCP Student in an Organized Health Care Education/Training Program; Referring Provider Nurse Practitioner Gerontology; Visit Provider Nurse Practitioner Gerontology
DX: R06.02 Shortness of breath (principal); R55 Syncope and collapse
CPT/HCPCS: 36415; 80048; 83880

== ENCOUNTER → 2023-07-16 | Outpatient (CLI) | payer MEDICARE, BC, SELFPAY ==
--- NOTE | 2023-07-16 06:05 | CDU_ITS ---
Reason For Study: Syncope Rt. Velocities/BP Lt. Velocities/BP Prox CCA 96.6/23.9 cm/sec. Prox CCA 99.2/21.2 cm/sec. Mid CCA 87.2/25.6 cm/sec. Mid CCA 72.9/19 cm/sec. Dist CCA 100.3/23.4 cm/sec. Dist CCA 77.3/22.3 cm/sec. Prox ICA 130.2/42.6 cm/sec. Prox ICA 253.1/81.8 cm/sec. Mid ICA 124.7/40.7 cm/sec. Mid ICA 164.1/44.8 cm/sec. Dist ICA 75.1/26.7 cm/sec. Dist ICA 95.5/22.5 cm/sec. Rt. ICA/CCA = 1.35. Lt. ICA/CCA = 3.27. Prox ECA 79.5/13.5 cm/sec. Prox ECA 72.9/12.4 cm/sec. Rt. Vert. 57.5/15.7 cm/sec. Lt. Vert. 36/11.6 cm/sec. Right Extracranial There is intimal thickening but no significant atherosclerotic plaque noted in the right common carotid artery. There is heterogeneous, irregular atherosclerotic plaque noted in the right internal carotid artery. There is intimal thickening but no significant atherosclerotic plaque noted in the right external carotid artery. Antegrade flow is noted in the right vertebral artery. Left Extracranial There is homogeneous, smooth atherosclerotic plaque noted in the left common carotid artery. There is heterogeneous, irregular atherosclerotic plaque noted in the left internal carotid artery. The atherosclerotic plaque causes acoustic shadowing. There is heterogeneous, irregular atherosclerotic plaque noted in the left external carotid artery. Antegrade flow is noted in the left vertebral artery. Procedure Carotid Duplex [id number]. This is a Carotid Duplex examination using B-mode, color flow and specral Doppler. Preliminary report given to Naomy CAMACHO. Exam performed in department. VL/Carotid Duplex Ultrasound Interpretation Summary Moderate (50-69%) stenosis right extracranial internal carotid. Severe (>70%) stenosis left extracranial internal carotid. Patent and antegrade vertebrals bilaterally. Ordering Physician: Naomy Lafleur Referring Physician: Javon Mckeon Performed By: Tali Medina RVT
--- NOTE | 2023-07-16 06:05 | ECHOD_ITS ---
Reason For Study: Syncope Procedure This was a 2D Doppler, Color Flow transthoracic echocardiogram. Exam performed in department. Left Ventricle Normal LV size. Left ventricular systolic function is normal. The estimated ejection fraction is 60 %. Stage 1 diastolic dysfunction. No regional wall motion abnormalities noted. Right Ventricle Normal RV size. Normal systolic function. Atria Normal left atrium. Normal right atrium. Mitral Valve Normal mitral valve. Tricuspid Valve Normal tricuspid valve. Aortic Valve Trisinus/trileaflet aortic valve. Pulmonic Valve Normal pulmonic valve. Great Vessels Normal aortic root. The pulmonary artery is normal size. Normal inferior vena cava. Pericardium/Pleural No pericardial effusion. MMode/2D Measurements & Calculations LVIDd: 4.9 cm IVSd: 0.94 cm Ao root diam: 3.1 cm LVIDs: 3.7 cm LVPWd: 0.97 cm RVDd: 3.0 cm FS: 25.8 % LAV(MOD-bp): 45.5 ml LVAd ap4: 33.0 cm2 SV(MOD-sp4): 58.2 ml LAV(MOD-bp) Indexed: 23.6 ml/m2 LVLd ap4: 8.8 cm LAV(MOD-sp2): 50.6 ml EDV(MOD-sp4): 103.7 ml LAV(MOD-sp4): 37.1 ml EDV(sp4-el): 105.3 ml LVAs ap4: 19.7 cm2 LVLs ap4: 7.4 cm ESV(MOD-sp4): 45.5 ml ESV(sp4-el): 44.6 ml EF(MOD-sp4): 56.1 % EF(sp4-el): 57.6 % SV(sp4-el): 60.6 ml LA A4 area: 15.0 cm2 LA dimension(2D): 3.9 cm RA A4 area: 13.4 cm2 TAPSE: 2.4 cm Time Measurements MV dec time: 0.29 sec Doppler Measurements & Calculations MV E max dwayne: 66.4 cm/sec Lat Peak E' Dwayne: 7.2 cm/sec Med Peak E' Dwayne: 6.5 cm/sec MV A max dwayne: 94.5 cm/sec E/E' lat: 9.3 E/E' med: 10.3 MV E/A: 0.70 Ao V2 max: 150.9 cm/sec LV V1 max: 106.3 cm/sec MV dec slope: 231.3 cm/sec2 Ao max P.1 mmHg LV V1 max P.5 mmHg Ao V2 mean: 103.7 cm/sec Ao mean P.7 mmHg Ao V2 VTI: 37.1 cm PA V2 max: 90.7 cm/sec ECHO/Echo Complete Interpretation Summary Normal LV size. Left ventricular systolic function is normal. The estimated ejection fraction is 60 %. Stage 1 diastolic dysfunction. Structurally normal valves. Ordering Physician: Naomy Lafleur Referring Physician: Javon Mckeon Performed By: Lashawn Damico, MADE[place], RVT
--- NOTE | 2023-07-16 14:48 | STRESSREP ---
Stress Test Report pharmacologic myocardial perfusion stress test. 73-year-old man with a history of chest pain Resting EKG demonstrates sinus bradycardia with a rate of 51 bpm. Resting blood pressure is 142/70 mmHg. 0.4 mg of regadenoson was infused per usual protocol followed by rapid intravenous saline flush injection. Continuous EKG monitoring was performed. The maximum heart rate was 76 bpm which was 51%of max impacted heart rate the maximum workload was 1 metabolic equivalent. At rest there were no ST or T wave changes noted to suggest ischemia and at peak infusion nonspecific ST changes were noted which did not meet the criteria for ischemia. No clinical angina is noted. The final blood pressure was 128/70 mmHg. Myocardial perfusion protocol. 11.9 mCi of technetium 99m sestamibi was injected at rest. 0.4 mg of regadenoson was infused per usual protocol. At peak infusion 34.3 mCi of technetium 99m sestamibi was injected stress images were obtained stress and rest images were reconstructed and compared in the short axis vertical long and horizontal long axis. Gated images were also obtained. Perfusion SPECT analysis: Review of the stress images demonstrate normal uptake of tracer noted in all areas of the myocardium. The resting images similar demonstrated normal uptake of tracer noted in all areas of the myocardium. No areas of reversibility are noted to suggest ischemia and no previous infarct is noted. Gated SPECT analysis: The gated ejection fraction is 56% . Conclusion: Normal pharmacologic myocardial perfusion stress test. Preserved ejection fraction.
== END | disposition home or self-care (01) ==
LOC: CVS 06:03
PROVIDERS: PCP Student in an Organized Health Care Education/Training Program; Referring Provider Physician Assistant Medical; Visit Provider Physician Assistant Medical
DX: R55 Syncope and collapse (principal); I25.10 Atherosclerotic heart disease of native coronary artery without angina pectoris; R06.02 Shortness of breath
CPT/HCPCS: 78452; 93017; 93306; 93880; A9500; A4216; J2785

== ENCOUNTER → 2024-01-14 | Outpatient (CLI) | payer MEDICARE, SELFPAY ==
--- NOTE | 2024-01-14 08:45 | CDU_ITS ---
Reason For Study: Stenosis Rt. Velocities/BP Lt. Velocities/BP Prox CCA 110.9/26.2 cm/sec. Prox CCA 113.3/22.5 cm/sec. Mid CCA 123.2/29.8 cm/sec. Mid CCA 109.7/23.7 cm/sec. Dist CCA 106/24.9 cm/sec. Dist CCA 92.5/20 cm/sec. Prox ICA 126.6/29.8 cm/sec. Prox ICA 230.5/49.5 cm/sec. Mid ICA 117.4/27.9 cm/sec. Mid ICA 114.8/24.8 cm/sec. Dist ICA 101/22.5 cm/sec. Dist ICA 82.6/24.9 cm/sec. Rt. ICA/CCA = 1.03. Lt. ICA/CCA = 2.10. Prox ECA 103.5/13.9 cm/sec. Prox ECA 106/12.6 cm/sec. Rt. Vert. 57.9/13.5 cm/sec. Lt. Vert. 38.6/11.6 cm/sec. Right Extracranial There is intimal thickening but no significant atherosclerotic plaque noted in the right common carotid artery. There is heterogeneous, irregular atherosclerotic plaque noted in the right internal carotid artery. There is intimal thickening but no significant atherosclerotic plaque noted in the right external carotid artery. Antegrade flow is noted in the right vertebral artery. Left Extracranial There is homogeneous, smooth atherosclerotic plaque noted in the left common carotid artery. There is heterogeneous, irregular atherosclerotic plaque noted in the left internal carotid artery. The atherosclerotic plaque causes acoustic shadowing. There is heterogeneous, irregular atherosclerotic plaque noted in the left external carotid artery. Antegrade flow is noted in the left vertebral artery. Procedure Carotid Duplex [id number]. This is a Carotid Duplex examination using B-mode, color flow and specral Doppler. Exam performed in department. VL/Carotid Duplex Ultrasound Interpretation Summary Moderate (50-69%) stenosis right extracranial internal carotid. Severe (>70%) stenosis left extracranial internal carotid. Patent and antegrade vertebrals bilaterally. Ordering Physician: Yadira Reis Referring Physician: Javon Mckeon Performed By: Tali Medina RVT
== END | disposition home or self-care (01) ==
LOC: CVS 08:45
PROVIDERS: PCP Student in an Organized Health Care Education/Training Program; Referring Provider Physician Assistant; Visit Provider Physician Assistant
DX: I65.23 Occlusion and stenosis of bilateral carotid arteries (principal)
CPT/HCPCS: 93880

== ENCOUNTER → 2024-08-31 | Outpatient (CLI) | payer MEDICARE, SELFPAY ==
--- NOTE | 2024-08-31 09:46 | CDU_ITS ---
Reason For Study: Lt ICA stenosis Rt. Velocities/BP Lt. Velocities/BP Prox CCA 101.4/17.9 cm/sec. Prox CCA 106/18.8 cm/sec. Mid CCA 106.9/17.9 cm/sec. Mid CCA 86.3/15.1 cm/sec. Dist CCA 91.6/17.9 cm/sec. Dist CCA 74/12.6 cm/sec. Prox ICA 115.6/33.4 cm/sec. Prox ICA 227.2/65.6 cm/sec. Mid ICA 93.7/24.3 cm/sec. Mid ICA 127.8/31.9 cm/sec. Dist ICA 84.6/24.3 cm/sec. Dist ICA 86.4/22.5 cm/sec. Rt. ICA/CCA = 1.08. Lt. ICA/CCA = 2.63. Prox ECA 112.1/12.6 cm/sec. Prox ECA 85.1/6.5 cm/sec. Rt. Vert. 53.2/15.1 cm/sec. Lt. Vert. 35.2/9 cm/sec. Right Extracranial There is intimal thickening but no significant atherosclerotic plaque noted in the right common carotid artery. There is heterogeneous, irregular atherosclerotic plaque noted in the right internal carotid artery. There is homogeneous, smooth atherosclerotic plaque noted in the right external carotid artery. Antegrade flow is noted in the right vertebral artery. Left Extracranial There is homogeneous, smooth atherosclerotic plaque noted in the left common carotid artery. There is heterogeneous, irregular atherosclerotic plaque noted in the left internal carotid artery. The atherosclerotic plaque causes acoustic shadowing. There is homogeneous, smooth atherosclerotic plaque noted in the left external carotid artery. Antegrade flow is noted in the left vertebral artery. Procedure Carotid Duplex [id number]. This is a Carotid Duplex examination using B-mode, color flow and specral Doppler. Exam performed in department. VL/Carotid Duplex Ultrasound Interpretation Summary Mild (<50%) stenosis right extracranial internal carotid. Moderate (50-69%) stenosis left extracranial internal carotid. Patent and antegrade vertebrals bilaterally. Ordering Physician: Yadira Reis Referring Physician: Javon Mckeon Performed By: Tali Medina RVT
== END | disposition home or self-care (01) ==
LOC: CVS 09:44
PROVIDERS: PCP Student in an Organized Health Care Education/Training Program; Referring Provider Physician Assistant; Visit Provider Physician Assistant
DX: I65.23 Occlusion and stenosis of bilateral carotid arteries (principal)
CPT/HCPCS: 93880